=== PATIENT | male | born 1980 | race Hispanic/Latino ===

== ENCOUNTER 2022-04-16 12:55 | Emergency (ER) | payer OTHER ==
[2022-04-16] MEDS ORDERED: Iopamidol 370 76% 100 ML VIAL ONE (14:15)
[2022-04-16 14:29] LABS: Bilirubin Neg (Negative); Blood, Urine Negative (Negative); Glucose, Urine (Dipstick) Normal (Negative); Ketone, Urine Negative (Negative); Leukocyte Negative (Negative); Nitrite Negative (Negative); Protein, Urine (Dipstick) Negative (Neg-Trace); Specific Gravity, Urine 1.005 (1.005-1.030); Urobilinogen Normal mg/dL (Less than 2)
[2022-04-16 14:30] LABS: Clarity Clear (Clear)
[2022-04-16 15:24] LABS: Hemoglobin 7.3 g/dL (13.5-17.5); Mean Corpuscular HGB CONC 33.8 g/dL (32.0-36.0); Mean Corpuscular Hemoglobin 33.6 pg (27.0-33.0); Mean Corpuscular Volume 99.5 fl (81.2-95.1); Platelet Count 179 10x3/uL (150-450); RBC Distribution Width 22.6 % (11.5-14.5); Red Blood Cell (RBC) Count 2.17 10x6/uL (4.32-5.72); White Blood Cell (WBC) Count 1.2 10x3/uL (3.5-10.5)
[2022-04-16 15:31] LABS: ALT (SGPT) 10 U/L (8-55); AST (SGOT) 15 U/L (5-34); Albumin 2.9 g/dL (3.5-5.0); Alkaline Phosphatase 51 U/L (40-110); Anion Gap 12 mmol/L (10-20); BUN (Urea Nitrogen) 10 mg/dL (8.9-20.6); Bilirubin, Total 1.4 mg/dL (0.2-1.2); Calc. Creatinine Clearance 0 mL/min (70-130); Carbon Dioxide 23 mmol/L (22-29); Chloride 100 mmol/L (98-107); Estimated GFR 115; Globulin 2.8 g/dL (2.4-3.5); Glucose 102 mg/dL (70-105); Lipase 10 U/L (8-78); Potassium 3.7 mmol/L (3.5-5.1); Protein, Total 5.7 g/dL (6.0-8.3); Sodium 131 mmol/L (136-145)
[2022-04-16 15:49] LABS: SARS-CoV-2 NAA Rapid Test Not Detected (NotDetected)
[2022-04-16 16:08] LABS: Lymphocytes 16 % (21-51); Monocytes 9 % (0-10); Neutrophil 74 % (42-75); Reactive Lymphocytes 1 % (0-10)
[2022-04-16 16:09] LABS: Anisocytosis MODERATE=16-30 cells (100X) (0-5/hpf); Hypochromia SLIGHT = 6-15 cells (100X) (0-5/hpf); MDiff Complete? YES; Poikilocytosis MODERATE=16-30 cells (100X) (0-5/hpf)
[2022-04-16 16:10] LABS: Elliptocytes MODERATE= 6-15 cells (100X) (0-1/hpf); Ovalocytes MODERATE= 6-15 cells (100X) (0-1/hpf); Schistocytes MODERATE= 6-15 cells (100X) (0-1/hpf)
[2022-04-16 16:11] LABS: Dohle Bodies SLIGHT; Hypersemented Neutrophil SLIGHT; Large Platelets SLIGHT; Platelet Morphology Comment Appears Adequate; Reflex for Review?? YES; Toxic Granulation SLIGHT
[2022-04-16] MEDS ORDERED: Acetaminophen 500 MG TAB ONE ×2 (17:02→21:34)
== END 2022-04-16 22:09 | disposition short-term general hospital (02) ==
LOC: CSHERS 12:55
DX: D64.9 Anemia, unspecified (principal); R53.1 Weakness; Z20.822 Contact with and (suspected) exposure to COVID-19
CPT/HCPCS: 36415; 36430; 71275; 80053; 81003; 82274; 83605; 83690; 84484; 85025; 85060; 86850; 86900; 86901; 93005; 96374; J3370; P9016; Q9967

== ENCOUNTER 2022-10-09 11:35 | Emergency (ER) | payer OTHER ==
[2022-10-09 12:21] LABS: Hemoglobin 5.1 g/dL (13.5-17.5)
[2022-10-09 12:23] LABS: Mean Corpuscular HGB CONC 31.5 g/dL (32.0-36.0); Mean Corpuscular Hemoglobin 28.8 pg (27.0-33.0); Mean Corpuscular Volume 91.5 fl (81.2-95.1); RBC Distribution Width 19.7 % (11.5-14.5); Red Blood Cell (RBC) Count 1.77 10x6/uL (4.32-5.72); White Blood Cell (WBC) Count 4.9 10x3/uL (3.5-10.5)
[2022-10-09 12:27] LABS: Platelet Count 27 10x3/uL (150-450)
[2022-10-09 12:34] LABS: INR-International Normal Ratio 1.1; MDiff Complete? YES; PTT 26.2 sec (22.0-33.0); Prothrombin Time 11.6 sec (9.5-12.1)
[2022-10-09 12:40] LABS: ALT (SGPT) 8 U/L (8-55); AST (SGOT) 21 U/L (5-34); Albumin 3.7 g/dL (3.5-5.0); Alkaline Phosphatase 39 U/L (40-110); Anion Gap 15 mmol/L (10-20); BUN (Urea Nitrogen) 11 mg/dL (8.9-20.6); Bilirubin, Total 0.7 mg/dL (0.2-1.2); Calc. Creatinine Clearance 0 mL/min (70-130); Calcium 8.9 mg/dL (7.8-10.44); Carbon Dioxide 23 mmol/L (22-29); Chloride 102 mmol/L (98-107); Estimated GFR 86; Globulin 4.2 g/dL (2.4-3.5); Glucose 101 mg/dL (70-105); Potassium 3.8 mmol/L (3.5-5.1); Protein, Total 7.9 g/dL (6.0-8.3); Sodium 136 mmol/L (136-145)
[2022-10-09 13:12] LABS: SARS-CoV-2 NAA Rapid Test Not Detected (NotDetected)
[2022-10-09 13:38] LABS: Differential Comment Blast-Like Cell(s); Lymphocytes 58 % (21-51); Neutrophil 0 % (42-75); Reflex for Review?? YES
[2022-10-09 13:39] LABS: Anisocytosis MODERATE=16-30 cells (100X) (0-5/hpf); Hypochromia MODERATE=16-30 cells (100X) (0-5/hpf); Macrocytosis SLIGHT = 6-15 cells (100X) (0-5/hpf); Microcytosis SLIGHT = 6-15 cells (100X) (0-5/hpf); Ovalocytes MODERATE= 6-15 cells (100X) (0-1/hpf); Poikilocytosis MODERATE=16-30 cells (100X) (0-5/hpf)
[2022-10-09 13:40] LABS: Elliptocytes SLIGHT = 2-5 cells (100X) (0-1/hpf)
[2022-10-09 13:41] LABS: Polychromasia SLIGHT = 2-3 cells (100X) (0-2/hpf)
[2022-10-09 13:42] LABS: Tear Drops MODERATE= 6-15 cells (100X) (0-1/hpf)
[2022-10-09 13:44] LABS: Platelet Morphology Comment Appears Decreased; Small Platelets SLIGHT
== END 2022-10-09 21:26 | disposition short-term general hospital (02) ==
LOC: CSHERS 11:35
DX: D64.9 Anemia, unspecified (principal)
CPT/HCPCS: 36430; 80053; 85025; 85060; 85610; 85730; 86850; 86900; 86901; 88184; 99285; P9016; U0002